=== PATIENT | male | born 1975 | race Caucasian/White ===

== ENCOUNTER 2024-01-09 11:40 | Emergency (ER) | payer OTHER, SELFPAY ==
--- NOTE | ~2024-01-09 | XR_ITS ---
EXAMINATION: XR knee LT min 4V DATE: 01/09/2024 12:39 INDICATION: Lateral left knee pain post recent injury with inability to bend or straighten the knee TECHNIQUE: Anteroposterior, sunrise, oblique and crosstable lateral views of the left knee were obtai stephania COMPARISON: None. FINDINGS: Alignment is normal. No fracture. Joint spaces appear normal on nonweightbearing imaging. No joint e ffusion/layering lipohemarthrosis. Soft tissues are unremarkable. IMPRESSION: 1. Negative left knee radiographs. Reviewed, dictated and finalized at location A.
[2024-01-09 11:58] VITALS: BP 118/95; PULSE 83; RESP 16; TEMP 36.2; O2SAT 100
[2024-01-09] MEDS: KETOROLAC (*BKC) 60 MG/2 ML VIAL IM (14:29)
--- NOTE | 2024-01-09 16:19 | ED.LOWEXIN ---
HPI - Extremity Injury (Lower) General Chief Complaint: Extremity Injury, Lower Stated Complaint: left knee popped out of place Time Seen by Provider: 01/09/24 13:52 History of Present Illness HPI Narrative: Patient is a 48-year-old male who presents ER with left knee pain. Reports he is stretching when he felt a pop. He now cannot extend his knee beyond 90? of flexion. Reports this has happened to him previously but it got better after few days. No numbness or tingling. No trauma. knee pain radiates up the left leg. Related Data Allergies Allergy/AdvReac Type Severity Reaction Status Date / Time No Known Allergies Allergy Verified 01/09/24 11:41 Review of Systems Constitutional: Constitutional: Reports no additional constitutional complaints Cardiovascular: Cardiovascular: Reports no additional cardiovascular complaints Respiratory: Respiratory: Reports no additional respiratory complaints Musculoskeletal: Musculoskeletal: Denies back pain, Reports arthralgias, Reports joint swelling and Denies muscle cramps PMFSH Past Medical History Medical History (Updated 01/09/24 @ 17:37 by Naeem Alston MD) Alcohol dependence Surgical History Surgical History (Updated 01/09/24 @ 17:37 by Naeem Alston MD) No pertinent past surgical history Exam Narrative: GENERAL: Well-appearing, well-nourished, and in no acute distress. HEAD: Normocephalic, atraumatic. ENT: Mucous membranes moist. CHEST: Clear to auscultation. No respiratory distress. HEART: Regular rate and rhythm. Normal peripheral pulses. EXTREMITIES: left knee with tenderness over lateral joint line with mild effusion. Unable to extend knee past 90? but is able to flex that he has pain. SKIN: Warm, dry, no rash. NEURO: Alert and oriented x3. PSYCH: Normal mood and affect. Course Course Emergency Course: Discussed case with Dr. Merritt with orthopedic surgery. Suspect bucket-handle tear of the meniscus and recommends lidocaine injection of the joint. Patient educated on diagnosis and treatment plan and verbalized understanding. He consented to joint injection knowing the risks of infection, nerve/vessel injury, and pain. Vital Signs Vital signs: Vital Signs Temperature 97.1 F L 01/09/24 11:58 Pulse Rate 83 01/09/24 11:58 Respiratory Rate 16 01/09/24 11:58 Blood Pressure 118/95 H 01/09/24 11:58 Pulse Oximetry 100 01/09/24 11:58 Oxygen Delivery Room Air 01/09/24 11:58 Temperature 97.1 F L 01/09/24 11:58 Pulse Rate 83 01/09/24 11:58 Respiratory Rate 16 01/09/24 11:58 Blood Pressure 118/95 H 01/09/24 11:58 Pulse Oximetry 100 01/09/24 11:58 Oxygen Delivery Room Air 01/09/24 11:58 Procedures Joint Aspiration/Injection Joint Asp./Inject. 1: Joint Aspiration Date: 01/09/24 Joint Aspiration Time: 16:50 Side of body: left Joint Aspirated: knee Ultrasound Guidance: No Skin Prep: Chlorhexidine Needle Size Used: 18G Medication Injected, if any: Lidocaine Amount of medication injected (mL): 10 Patient Tolerated Procedure: well Complications: none Additional Comments: Sterile technique used. Topical antibiotic and bandaid applied. MDM - Extremity Injury (Lower) Imaging Data Radiologist's impression: ITS Impressions Knee X-Ray 01/09/24 12:52 IMPRESSION: 1. Negative left knee radiographs. Discharge Plan Discharge Clinical Impression: Internal derangement of knee Patient Disposition: Home, Self-Care Condition: Stable Instructions: Crutch Instructions (ED), Meniscus Tear (ED) Additional Instructions: Contact the orthopedic surgeon listed below. You will need close follow-up. Take Tylenol/ ibuprofen for pain. Bear weight as tolerated on the affected extremity. Prescriptions: New ibuprofen 600 mg tablet 600 mg PO TID Qty: 20 0RF Follow-up/Referrals: Jeffrey Merritt
[2024-01-09 18:05] VITALS: BP 125/91; PULSE 76; RESP 18; TEMP 36.6; O2SAT 100
== END 2024-01-09 18:05 | disposition home or self-care (01) ==
PROVIDERS: Emergency Provider Emergency Medicine
DX: M23.92 Unspecified internal derangement of left knee (principal)
CPT/HCPCS: 20610; 73564; 96372; 99283; J1885

== ENCOUNTER 2024-02-04 10:26 | Outpatient (CLI) | payer OTHER, SELFPAY ==
--- NOTE | ~2024-02-04 | MR_ITS ---
MRI of the left knee Clinical history: Pain Technique: Coronal proton density and proton density-weighted images, sagittal proton-density and T2 fat-sat images, and axial proton-density fat-saturated images were acquired. Findings: Anterior and posterior cruciate ligaments are intact. Medial collateral ligament and the la teral collateral ligament complex are intact. Popliteus tendon is intact. Medial and lateral menisci are intact, without evidence of tear. Articular cartilage is well preserved throughout the knee. Bone marrow signals are unremarkable. Extensor mechanism is intact. No significant joint effusion. Small Bob's cyst. Impression: Small Bob's cyst, otherwise essentially unremarkable exam. Reviewed, dictated and finalized at location M. Impression: Small Bob's cyst, otherwise essentially unremarkable exam.
== END 2024-02-04 10:27 | disposition home or self-care (01) ==
PROVIDERS: PCP Internal Medicine; Visit Provider Orthopaedic Surgery
DX: M71.22 Synovial cyst of popliteal space [Baker], left knee (principal)
CPT/HCPCS: 73721